=== PATIENT | male | born 1995 ===

== ENCOUNTER 2018-06-27 20:57 | Emergency (ER) | payer SELFPAY ==
[2018-06-27 21:08] VITALS: RESP 18; TEMP 98.3; O2SAT 100; BMI 25.3
--- NOTE | 2018-06-27 21:42 | ED PDOC ---
Arrival/HPI <Geovani Pino - Last Filed: 06/28/18 05:16> <Carlos Alberto Richey - Last Filed: 06/28/18 22:01> - General Time Seen by Provider: 06/27/18 21:08 Past Medical History - Psychiatric Hx Substance Use: No - Anesthesia Hx Anesthesia: No <Geovani Pino - Last Filed: 06/28/18 05:16> - Provider Review Nursing Documentation Reviewed: Yes <Carlos Alberto Richey - Last Filed: 06/28/18 22:01> Family/Social History Family/Social History: No Known Family HX Smoking Status: Never Smoked Hx Alcohol Use: Yes Frequency of alcohol use: Socially Hx Substance Use: No <Geovani Pino - Last Filed: 06/28/18 05:16> - Physician Review Nursing Documentation Reviewed: Yes <Carlos Alberto Richey - Last Filed: 06/28/18 22:01> Allergies/Home Meds <Geovani Pino - Last Filed: 06/28/18 05:16> <Carlos Alberto Richey - Last Filed: 06/28/18 22:01> Allergies/Adverse Reactions: Allergies No Known Allergies Allergy (Verified 06/27/18 21:08) Review of Systems - Physician Review All systems were reviewed & negative as marked: Yes - Review of Systems Respiratory: absent: SOB, Cough, Wheezing Cardiovascular: Chest Pain (which he states is a burning sensation that is mid- sternal with out radiation.). absent: Palpitations, Edema, Orthopnea, Syncope <Geovani Pino - Last Filed: 06/28/18 05:16> Physical Exam Temperature: Afebrile Blood Pressure: Normal Pulse: Regular Respiratory Rate: Normal Appearance: Positive for: Well-Appearing, Non-Toxic, Comfortable Pain Distress: None Mental Status: Positive for: Alert and Oriented X 3 - Systems Exam Head: Present: Atraumatic, Normocephalic Pupils: Present: PERRL Extroacular Muscles: Present: EOMI Mouth: Present: Moist Mucous Membranes Respiratory/Chest: Present: Clear to Auscultation, Good Air Exchange. No: Respiratory Distress, Accessory Muscle Use, Wheezes, Rales Cardiovascular: Present: Regular Rate and Rhythm, Normal S1, S2. No: Irregular Rhythm, Gallop Abdomen: Present: Normal Bowel Sounds. No: Tenderness, Distention, Peritoneal Signs, Rebound, Guarding Lower Extremity: Present: Normal Inspection. No: Edema, CALF TENDERNESS, NORMAL PULSES Neurological: Present: GCS=15, CN II-XII Intact, Speech Normal Skin: Present: Warm, Dry, Normal Color. No: Rashes, Diaphoretic Psychiatric: Present: Alert, Oriented x 3, Normal Insight, Normal Concentration <AlvarezSandraOlivo - Last Filed: 06/28/18 05:16> Vital Signs Temp Pulse Resp BP Pulse Ox 06/27/18 23:12 85 18 131/80 100 06/27/18 21:07 98.3 F 95 H 18 139/80 100 - Lab Interpretations Lab Results: 06/27/18 22:07 06/27/18 22:07 Lab Results 06/27/18 22:07: Sodium 140, Potassium 4.2, Chloride 103, Carbon Dioxide 28, Anion Gap 14, BUN 16, Creatinine 0.9, Est GFR ( Amer) > 60, Est GFR (Non- Af Amer) > 60, Random Glucose 100, Calcium 9.4, Phosphorus 3.3, Magnesium 1.9, Total Bilirubin 0.9, AST 21, ALT 21, Alkaline Phosphatase 74, Troponin I < 0.01, Total Protein 8.0, Albumin 4.5, Globulin 3.5, Albumin/Globulin Ratio 1.3 06/27/18 22:07: WBC 4.7, RBC 5.26, Hgb 15.9, Hct 46.3, MCV 88.0, MCH 30.2, MCHC 34.3, RDW 13.2, Plt Count 257, MPV 10.4 - Medication Orders Current Medication Orders: Discontinued Medications Pantoprazole Sodium (Protonix Inj) 40 mg IVP STAT STA Stop: 06/27/18 21:31 Last Admin: 06/27/18 21:46 Dose: 40 mg IVP Administration Document 06/27/18 21:46 FILI (Rec: 06/27/18 21:56 [email or web address]) Charges for Administration # of IVP Administrations 1 Disposition/Present on Arrival - Present on Arrival Any Indicators Present on Arrival: No History of DVT/PE: No History of Uncontrolled Diabetes: No Urinary Catheter: No History of Decub. Ulcer: No History Surgical Site Infection Following: None - Disposition Have Diagnosis and Disposition been Completed?: Yes Disposition Time: 23:30 <Geovani Pino - Last Filed: 06/28/18 05:16> <Carlos Alberto Richey - Last Filed: 06/28/18 22:01> - Disposition Diagnosis: Gastritis Disposition: HOME/ ROUTINE Condition: GOOD Discharge Instructions (ExitCare): Gastritis Additional Instructions: follow up with pmd Prescriptions: Pantoprazole Sodium [Protonix] 40 mg PO DAILY #14 ect Forms: [employer] (Slovak), WORK NOTE
[2018-06-27 22:11] LABS: HEMOGLOBIN 15.9 g/dL (14.0-18.0); MEAN CORPUSCULAR HEMOGLOBIN 30.2 pg (25.0-35.0); MEAN CORPUSCULAR HGB CONC 34.3 g/dl (31.0-37.0); MEAN PLATELET VOLUME 10.4 fl (7.0-11.0); RBC 5.26 10^6/uL (3.5-6.1); RED CELL DISTRIBUTION WIDTH 13.2 % (11.5-14.5); WHITE BLOOD COUNT 4.7 10^3/ul (4.5-11.0)
[2018-06-27 22:22] LABS: ALB/GLOB RATIO 1.3 (1.1-1.8); ALBUMIN 4.5 g/dL (3.0-4.8); ALT/SGPT 21 U/L (7-56); AST/SGOT 21 U/L (17-59); BLOOD UREA NITROGEN 16 mg/dL (7-21); CALCIUM 9.4 mg/dL (8.4-10.5); GFR NON-AFRICAN AMERICAN > 60
[2018-06-27 22:33] LABS: TROPONIN I < 0.01 ng/mL
[2018-06-27 23:14] VITALS: BP 131/80; PULSE 85
--- NOTE | 2018-06-28 09:31 | CARD ---
APPROVED REPORT Date of service: 06/27/2018 EKG Measurement Heart [id number] <Conclusion> Sinus tachycardia PRWP, V 1 - 3, possible due to lead placement. Suggest repeat. ST elevations V 1 - 3 Suggest clinical correlation. I spoke to Dr. Olivera.
== END 2018-06-27 23:12 | disposition home or self-care (01) ==
LOC: ED 20:57
DX: K29.70 Gastritis, unspecified, without bleeding (principal)
CPT/HCPCS: 80053; 83735; 84100; 84484; 85027; 93005; 96374; 99283; C9113